=== PATIENT | female | born 1960 | race Caucasian/White ===

== ENCOUNTER 2021-12-21 06:34 | Day surgery (SDC) | payer OTHER ==
[~2021-12-21] VITALS: Ht 165.1 cm; Wt 73.7 kg
[~2021-12-21 06:34] MED LIST: BIOTIN2500 MCG PO; CITALOPRAM HBR20 MG PO; DICLOFENAC SODI75 MG PO; FISH OIL 1,2001 EAC1 PO; HYDROCODON-ACE1 EA10 PO; LEVOTHYROXINE125 MCG PO; PIMTREA 28 DAY1 EACH PO; TRAZODONE HCL50 MG PO; TURMERIC500 MG PO
--- NOTE | 2021-12-21 08:22 | NUR ---
12/21/21 0822 Cindy Zhang 0819-PT TO PACU IN LL POSITION. EYES CLOSED. RESPONDS TO VERBAL AND TACTILE STIMULI. DENIES PAIN AND FALLS QUICKLY BACK TO SLEEP. BREATHING EASY AND UNLABORED. SPO2 >95% ON 3 L O2 VIA NC. PT ENCOURAGED TO PASS GAS.
--- NOTE | 2021-12-21 17:32 | OR ---
[facility] [address], [place] [address] Signed DATE OF OPERATION: 12/21/2021 SURGEON: Rowan Yang MD PREOPERATIVE DIAGNOSES: 1. Internal and external hemorrhoids. 2. Internal anal skin tags. 3. Chronic constipation. 4. Intermittent rectal bleeding. 5. Twin sister with colonic polyps. 6. Sister with rectal cancer at age 49. POSTOPERATIVE DIAGNOSES: 1. Fnyqakv-mz-zsjfsdrt internal and external hemorrhoids. 2. Minimal internal anal skin tags. PROCEDURE: Colonoscopy with hot biopsy. ESTIMATED BLOOD LOSS: None. INDICATIONS: Margo is a 61-year-old female, who comes for a followup colonoscopy. She talked about hemorrhoids after her pregnancies. She has intermittent rectal bleeding. She has lifelong constipation. Her twin sister had colonic polyps. Another sister had rectal cancer at age 49. It is a question whether her father may have had some type of colitis, but they are not sure. In addition, Margo develops vertigo after her procedures, and therefore always requires a scopolamine patch. We provided that for her today. Dr. Huber helped her with the colonoscopy in 2000. I helped her again in 2008 and she did fine other than some internal anal skin tags and the hemorrhoids. She always does well with the Versed and fentanyl. I repeated the colonoscopy in 2015 and again some internal and external hemorrhoids with the internal anal skin tags. Now that the COVID pandemic is starting to subside, she has come back for followup colonoscopy. She has no lower GI complaints other than the lifelong constipation. In the office, I gave Margo a pamphlet on colonoscopy. We had reviewed that together in detail. She understands there is risk including, but not limited to gas bloating, crampy abdominal pain, bleeding, perforation requiring surgery, and missed diagnosis. Again, she always does well with Versed and fentanyl. She had expressed understanding and wished to proceed. Electronically Signed By: ROWAN YANG MD 12/21/21 1732 PATIENT NAME: MARGO CURRY OPERATIVE REPORT DATE OF : 62 REPORT #: [id number] PHYSICIAN: ROWAN YANG MD PCP: DOMENICA TIDWELL PA-C REPORT IS CONFIDENTIAL AND NOT TO BE RELEASED WITHOUT AUTHORIZATION [facility] [address] [place] [id number] Signed DESCRIPTION OF PROCEDURE: Margo was taken into our endoscopy suite and placed in a left lateral decubitus position. She was given a total of 7 mg of Versed and 200 mcg of fentanyl. On this occasion, her endoscopy was much more difficult. We had trouble getting around the hepatic flexure. We had to rotate her into the supine position along with abdominal compression. We had used additional sedation. Even then, she was moving and groaning and awake during much of the procedure. At the end of the procedure, she was waking up. If she has recall of the procedure, she really needs monitored anesthesia care in the future for her own comfort as well as to increase her safety due to the technical difficulty with her procedure. Thankfully, her prep was quite excellent. We could easily see the appendiceal orifice and the ileocecal valve. The scope was then slowly withdrawn. Unfortunately, we could not capture photographs today on our computer. We saw no polyps throughout the entire colon or rectum. There was no diverticulosis. Once we were in the rectum, the scope had been retroflexed and she does have the svvgeky-ec-vymvsokq internal hemorrhoids along with the associated small skin tags. She does have pehmqts-af-hhoboqvk external circumferential hemorrhoids with good sphincter tone. After this, the gas was suctioned out, the colonoscope removed. Overall, Margo tolerated the procedure as above. RECOMMENDATIONS: Margo can follow up in 5 years for repeat colonoscopy. If she has recall of this test, she really needs monitored anesthesia care in the future as she is getting older to increase her safety margin as described above. Rowan Yang MD ALB/MODL /[id number] cc: Rowan Yang MD Patient Chart Domenica Tidwell PA-C Electronically Signed By: ROWAN YANG MD 12/21/21 1732 PATIENT NAME: MARGO CURRY OPERATIVE REPORT DATE OF : 62 REPORT #: [id number] PHYSICIAN: ROWAN YANG MD PCP: DOMENICA TIDWELL PA-C REPORT IS CONFIDENTIAL AND NOT TO BE RELEASED WITHOUT AUTHORIZATION [address] [address] Signed Copies: ROWAN YANG MD, CHLOE K PA-C ~ Electronically Signed By: ROWAN YANG MD 12/21/21 1732 PATIENT NAME: MARGO CURRY OPERATIVE REPORT DATE OF : 62 REPORT #: [id number] PHYSICIAN: ROWAN YANG MD PCP: DOMENICA TIDWELL PA-C REPORT IS CONFIDENTIAL AND NOT TO BE RELEASED WITHOUT AUTHORIZATION
== END 2021-12-21 10:20 | disposition home or self-care (01) ==
LOC: DS 06:34 → OPS 06:34 → DS 07:30 → OPS 10:20
PROVIDERS: ATTEND Colon & Rectal Surgery
PROC: 0DJD8ZZ Inspection of Lower Intestinal Tract, Via Natural or Artificial Opening Endoscopic (ICD-10-PCS; principal; 2021-12-21 07:30)
DX: K64.0 First degree hemorrhoids (principal); K64.4 Residual hemorrhoidal skin tags; E03.9 Hypothyroidism, unspecified; F41.9 Anxiety disorder, unspecified; R01.1 Cardiac murmur, unspecified; Z83.71 Family history of colonic polyps; Z80.0 Family history of malignant neoplasm of digestive organs; R42 Dizziness and giddiness; Z88.2 Allergy status to sulfonamides; Z88.8 Allergy status to other drugs, medicaments and biological substances; Z91.018 Allergy to other foods
CPT/HCPCS: 99153; G0500; J2250; J3010; J7121